=== PATIENT | male | born 1985 | race Hispanic/Latino ===

== ENCOUNTER 2018-11-19 16:04 | Observation (INO) | payer SELFPAY ==
[2018-11-19] MEDS ORDERED: Lidocaine 1% (PF) 30 ML VIAL ONE (16:57)
[2018-11-19] MEDS ORDERED: Bupivacaine 0.5% 10 ML VIAL ONE (16:57)
[2018-11-19 17:36] LABS: #Eosinphils 0.1 thou/uL (0.0-0.7); #Lymphocytes 3.2 thou/uL (1.20-3.40); #Monocytes 0.5 thou/uL (0.11-0.59); #Neutrophils 3.9 thou/uL (1.40-6.50); %Basophils 0.3 % (0.0-1.0); %Eosinophils 1.9 % (0.0-10.0); %Lymphocytes 41.1 % (21.0-51.0); %Neutrophils 50.8 % (42.0-75.0); Hemoglobin 15.9 g/dL (14.0-18.0); Mean Corpuscular HGB CONC 33.8 g/dL (32.0-36.0); Mean Corpuscular Hemoglobin 30.8 pg (27.0-31.0); Mean Corpuscular Volume 91.2 fL (78.0-98.0); Mean Platelet Volume 6.8 fL (7.4-10.4); Platelet Count 194 thou/uL (130-400); RBC Distribution Width 11.3 % (11.5-14.5); Red Blood Cell (RBC) Count 5.15 mill/uL (4.70-6.10); White Blood Cell (WBC) Count 7.7 thou/uL (4.8-10.8)
[2018-11-19 17:57] LABS: ALT (SGPT) 28 U/L (8-55); AST (SGOT) 29 U/L (5-34); Albumin 4.7 g/dL (3.5-5.0); Alkaline Phosphatase 75 U/L (40-150); Anion Gap 9 mmol/L (10-20); BUN (Urea Nitrogen) 19 mg/dL (8.9-20.6); Bilirubin, Total 0.8 mg/dL (0.2-1.2); Calc. Creatinine Clearance 0 mL/min (70-130); Calcium 9.9 mg/dL (7.8-10.44); Carbon Dioxide 26 mmol/L (22-29); Chloride 105 mmol/L (98-107); Estimated GFR-MDRD 79; Globulin 3.2 g/dL (2.4-3.5); Glucose 96 mg/dL (70-105); Protein, Total 7.9 g/dL (6.0-8.3); Sodium 136 mmol/L (136-145)
--- NOTE | 2018-11-19 17:59 | ULT ---
EXAM: Soft tissue ultrasound fourth finger left hand: INDICATIONS: Assess for foreign body COMPARISON: None. FINDINGS: Echogenic foreign body seen in the subcutaneous tissues palmar aspect base of fourth digit measuring approximately 2 to 3 mm in length. IMPRESSION: Echogenic foreign body identified base of fourth digit
[2018-11-19] MEDS ORDERED: Adacel (T-DAP) 0.5 ML SYRINGE ONE (18:18)
[2018-11-19] MEDS ORDERED: CEFAZOLIN 1 GM VIAL ONE (18:19)
[2018-11-19] MEDS ORDERED: HYDROcodone/Acetaminophen 5/325 mg Tablet PO PRN ×2 (19:59)
[2018-11-19] MEDS ORDERED: Ondansetron PF 4 MG/2 ML Vial IVP PRN (19:59)
[2018-11-19] MEDS ORDERED: Sodium Chloride 0.9% 1,000 ML IV SCH (19:59)
[2018-11-19 22:02] VITALS: BMI 25.7
[2018-11-20] MEDS ORDERED: Ondansetron PF 4 MG/2 ML Vial IVP PRN (00:59)
[2018-11-20] MEDS ORDERED: HYDROcodone/Acetaminophen 5/325 mg Tablet PO PRN ×2 (01:00)
[2018-11-20] MEDS: Sodium Chloride 0.9% 1,000 ML IV SCH ×2 (01:10→04:08)
[2018-11-20 04:00] VITALS: TEMP 98.4
[2018-11-20] MEDS ORDERED: Fentanyl 100 MCG/2 ML VIAL ONE (07:51)
[2018-11-20] MEDS ORDERED: Midazolam HCl 2 mg/2 ml Vial ONE (07:52)
[2018-11-20] MEDS ORDERED: Betamet Acet/Betamet Na Ph 30 MG/5 ML VIAL ONE (08:48)
[2018-11-20] MEDS ORDERED: Bacitracin Zinc Ointment 30 gm TUBE ONE (08:48)
[2018-11-20] MEDS ORDERED: Bupivacaine PF 0.5% 30 ML VIAL ONE (08:48)
[2018-11-20] MEDS ORDERED: Sodium Chloride 0.9% 10 ML ONE ×2 (08:56→09:02)
[2018-11-20] MEDS ORDERED: Promethazine HCl 25 MG/ML VIAL IM PRN (09:36)
[2018-11-20] MEDS ORDERED: Meperidine HCl/PF 25 MG/ML VIAL SLOW IVP PRN (09:36)
[2018-11-20] MEDS ORDERED: Ketorolac Tromethamine 30 MG/ML VIAL IVP PRN (09:36)
[2018-11-20] MEDS ORDERED: Ondansetron HCl/PF 4 MG/2 ML Vial IVP PRN (09:36)
[2018-11-20] MEDS ORDERED: Ketorolac Tromethamine 30 MG/ML VIAL ONE (09:52)
[2018-11-20] MEDS ORDERED: Clindamycin/D5W 600 MG in Premix Bag 1 BAG IVPB SCH (10:00)
[2018-11-20] MEDS ORDERED: PROPOFOL 200 MG/20 ML VIAL ONE (10:04)
[2018-11-20] MEDS ORDERED: Lidocaine 1% PF 5 ML VIAL ONE (10:04)
[2018-11-20] MEDS ORDERED: Dexamethasone 20 MG/5 ML VIAL ONE (10:04)
[2018-11-20] MEDS ORDERED: Ondansetron PF 4 MG/2 ML Vial ONE (10:04)
[2018-11-20 13:31] VITALS: BP 107/63
--- NOTE | 2018-11-22 09:20 | OP ---
DATE OF PROCEDURE: 11/20/2018 PREOPERATIVE DIAGNOSIS: Splinter foreign body, left ring finger. POSTOPERATIVE DIAGNOSES: 1. Splinter foreign body, left ring finger, 3 cm wood splinter with . 2. No digital sheath violation. 3. Digital nerve compression as it lie superficial between the skin and the nerve, slightly tenting the nerve course. COMPLICATIONS: None. TOURNIQUET TIME: 17 minutes. ESTIMATED BLOOD LOSS: 5 mL. SPECIMEN: 3 cm wood splinter, cano. PROCEDURES PERFORMED: 1. Digital nerve neuroplasty, ulnar digital nerve, left ring finger. 2. Removal of foreign body, 3 cm. 3. Debridement, intermediate depth, [id number], down to but not including the tendon sheath or bone. COMPLICATIONS: None. DESCRIPTION OF PROCEDURE: After successful general anesthesia, this patient had limb prepped and draped. He had 10 mL of 0.5% Marcaine block with epinephrine before procedure and 5 after. He then had a modified Kellen incision made over puncture wound, which was less than a millimeter in the distal 1/3 of the palmar aspect of the proximal phalanx. We carried this distal to the PIP joint about 5 mm and then to most of the length of the proximal phalanx in a modified Kellen technique. We immediately dissected down as we began to try to visualize the digital nerve on the ulnar aspect, we noticed that cano foreign body lie over the nerve, so we had to perform a neuroplasty to separate it from the nerve and then followed its course. It was a wood splinter of 3 cm long. We removed it. There were multiple cano particles along its track and we did debridement with a combination of tenotomy scissors, Adson's, sebastián crile, and Jimmie crile and hemostat along with 3 L of normal saline irrigation bulb syringe with antibiotics inside. After we had done this, the tract was clean. Inspection of the contralateral neurovascular bundle showed intact and there was no evidence of tendon sheath violation and there is no other contamination. We then finished the irrigation with a total of 3 L normal saline, released the tourniquet and obtained hemostasis, and we placed the wood splinter in the contain and gave it to the family. The patient then had the incision closed with excellent hemostasis, gave additional 5 mL of 0.5% Marcaine injection, and a bulky dressing was applied, leaving the operating room without evidence of anesthetic or operative complication. Job ID: [id number]
== END 2018-11-20 14:25 | disposition home or self-care (01) ==
LOC: ERS 16:04 → SURG A 19:56
PROVIDERS: ADMIT Orthopaedic Surgery Hand Surgery; ATTEND Orthopaedic Surgery Hand Surgery
PROC: 0HCGXZZ Extirpation of Matter from Left Hand Skin, External Approach (ICD-10-PCS; principal; 2018-11-20)
PROC: 01N50ZZ Release Median Nerve, Open Approach (ICD-10-PCS; 2018-11-20)
DX: S60.455A Superficial foreign body of left ring finger, initial encounter (principal); G56.12 Other lesions of median nerve, left upper limb
CPT/HCPCS: 36415; 76999; 80053; 85025; 90471; 90715; 96361; 96365; 96367; G0378; J0690; J0702; J1100; J1885; J2001; J2250; J2405; J2704; J3010; J3490; S0020